=== PATIENT | female | born 1925 | race African-American/Black ===

== ENCOUNTER 2017-01-22 07:58 | Inpatient (IN) ==
[2017-01-22] MEDS ORDERED: ONDANSETRON 4 MG/2 ML VIAL IV STA ×2 (08:19→11:21)
[2017-01-22] MEDS ORDERED: SODIUM CHLORIDE 0.9% 1,000 ML IV STA (08:19)
--- NOTE | 2017-01-22 08:23 | Emergency Department Note ---
Yunier Martinez Rolonda, am scribing for, and in the presence of, Froy Quinetros MD 08: 21. Nlei Martinez James D, MD, personally performed the services described in this documentation, ascribed by Shanika Faye in my presence, and it is both accurate and complete 823 . 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 Mode of Arrival: Wheelchair Limitations: No Limitations Source: Patient, Old Records Reviewed, RN Notes Reviewed - History of Present Illness HPI Narrative: Pt is an 89 y/o female who presents to the ED with c/o constant abdominal pain with an onset of x1 week. Pt has a PMHx of DM, GERD and a PSHx of hysterectomy and bladder. Pt states that she is "so sick that she cant eat anything". She states that the pain radiates to side and back. Pt confirms that she has been itching and scratching along with having dark urine. She states that she has had a recent BM and no hematochezia. Pt is f/u by Dr. Hernandez. No other complaint/pain in ED. Onset (ago): week(s) Consistency: constant Severity: mild Severity scale (1-10): 3 Quality: other (radiating) Allergies/Adverse Reactions: Allergies Allergy/AdvReac Type Severity Reaction Status Date / Time Penicillins Allergy Mild HIVES Verified 01/22/17 08:04 Home Medications: Home Medications Medication Instructions Recorded Confirmed Type glipiZIDE [Glucotrol] 10 mg PO BID 01/01/15 01/22/17 History Esomeprazole Magnesium [Nexium] 40 mg PO DAILY 08/22/15 01/22/17 History Celecoxib [Celecoxib] 200 mg PO DAILY 01/22/17 01/22/17 History Cholecalciferol (Vitamin D3) 50,000 unit PO SA 01/22/17 01/22/17 History [Replesta] Cyclobenzaprine [Flexeril] 10 mg PO TID PRN 01/22/17 01/22/17 History Dexamethasone Tab [Decadron Tab] 4 mg PO DAILY 01/22/17 01/22/17 History Liraglutide [Victoza 2-Miguel] 1.2 mg SUBCUT QAM 01/22/17 01/22/17 History Losartan Potassium 50 mg PO DAILY 01/22/17 01/22/17 History Nitrofurantoin Monohyd/M-Cryst 100 mg PO QID 01/22/17 01/22/17 History [Nitrofurantoin [place]-Mcr 100 mg] Review of System - Review of System 12 point system: reviewed and no additional remarkable complaints except as stated - Review of System Constitutional: Absent: chills, fever Eyes: Absent: pain Head/Ears/Nose/Throat: Absent: earache Respiratory: Absent: cough, respiratory distress Cardiovascular: Absent: chest pain, dyspnea on exertion Gastrointestinal: Present: abdominal pain, nausea, vomiting. Absent: diarrhea Genitourinary female: Present: other (vaginal itching and scratching; dark urine ). Absent: dysuria Musculoskeletal: Present: back pain, other (side pain). Absent: arm pain, neck pain Skin: Absent: rash Neurological: Absent: headache Psychiatric: Absent: anxiety Endocrine: Absent: cold intolerance Hematological/Lymphatic: Absent: easy bleeding Allergic/Immunologic: Absent: facial swelling Medical,Surgical,& Family Hx - Medical History Cardio: History of: Hypertension Neurology: History of: Peripheral Neuropathy No history of: Seizures HEENT: History of: Eye Problem (glasses), Dental Problems (full set) Endocrine: History of: Diabetes Mellitus (IDDM), Dyslipidemia Rheumatology: History of;: Gout (feet), Rheumatoid Arthritis Respiratory: History of: Respiratory Problems (sinus problems) Genitourinary: History of: Bladder Problem (incontience) Gastrointestinal: History of: GERD, Hemorrhoids Musculoskeletal: History of: Back/Neck Problems Other: History of: Anesthesia Reactions (nausea), Cancer (bladder cancer) - Surgical History Thoracic Surgeries: Patient denies;: Organ Transplant, Lobectomy HEENT Surgeries: Surgical HX of: Eye Surgery (bilateral cataract) Reproductive Surgeries: Surgical HX of;: Genitourinary Surgery (bladder cancer removed), Hysterectomy Orthopedic Surgeries: Surgical HX of;: Total Hip Replacement (left), Total Knee Replacement (right) - Social History Smoking Status: Never smoker Frequency of Alcohol Use: None Type of Drug Use: None Exam Vital Signs: Vital Signs Temperature 97.1 F L 01/22/17 08:44 Pulse Rate 89 01/22/17 08:44 Respiratory Rate 17 01/22/17 08:44 Blood Pressure 121/61 01/22/17 08:44 O2 Sat by Pulse Oximetry 98 01/22/17 08:50 GENERAL: This is a well-nourished well-developed black female in no apparent distress. VITAL SIGNS: Reviewed HEENT: Head is atraumatic and normocephalic. Pupils are equal round react to light. Extraocular movements are intact. Arcus senilis is present bilaterally. Scleral icterus is present. Oropharynx is benign with moist mucous membranes. NECK: Neck is soft and supple without tenderness. There are no masses. There is no lymphadenopathy. LUNGS: Lungs are clear to auscultation. Chest rises symmetrically. There is no chest wall tenderness. CV: Heart is regular rate and rhythm without murmurs rubs or gallops. ABDOMEN: Abdomen is soft, tender to palpation in epigastrium and right upper quadrant without rebound. There are no abdominal abnormal masses palpated. There is no organomegaly. Bowel sounds are present and active. SKIN: Skin is warm and dry. No rash. EXTREMITIES: Patient has full range of motion without tenderness. There is no pedal edema. NEUROLOGIC: Awake alert and oriented 4. Cranial nerves II through XII are grossly intact. Motor is 5 over 5 in all extremities bilaterally. Course - Consultations Consultation #1: Discussed with Dr. De Luna. Patient will be admitted to his service. Time: 11:14 Consultation #2: Discussed with hospitalist. Patient will be admitted to their service. Time: 12:29 Results - Labs CBC & BMP: 01/22/17 09:00 01/22/17 10:15 Lab Results: I have reviewed the patients labs Labs: Laboratory Tests 01/22/17 10:15 Total Bilirubin 15.70 H* AST 122 H ALT 265 H Alkaline Phosphatase 265 H - Diagnostic Findings Procedure: Abdominal x-ray: image reviewed by me (No free air, nonspecific gas pattern.), Chest x-ray: image reviewed by me (No cardiomegaly, no pleural effusions, no infiltrates.), Ultrasound: report reviewed by me (Gallbladder ultrasound: Thickened gallbladder wall and cholelithiasis. Ultrasound consistent with cholecystitis.) Disposition Clinical Impression: Right upper quadrant abdominal pain, Jaundice, Cholelithiasis and cholecystitis with obstruction, Acute renal failure Case discussed with: patient Disposition: Still a Patient Condition: Guarded
--- NOTE | 2017-01-22 08:43 | XRay Report ---
XR abdomen 2V Indication: Generalized abdominal pain Comparison: None Technique: Frontal views of the abdomen in the supine and lateral decubitus position. Findings: Nonspecific bowel gas pattern. Much of the abdomen is essentially gasless. No free intraperitoneal air. Lung bases clear. Diffuse osteopenia. Total left hip prosthesis. Presumed pelvic phleboliths. It would be difficult to exclude distal ureteral calculus in the appropriate clinical setting. IMPRESSION: As above. PROCEDURE INTERPRETED AT [facility] DEPARTMENT OF RADIOLOGY Final Report Signed by: Dr Som Celeste
--- NOTE | 2017-01-22 08:45 | XRay Report ---
XR chest 1V portable Indication: Generalized abdominal pain Comparison: None Technique: Single frontal view of the chest. Findings: Heart size appears within normal limits. Chronic change of the lungs without focal consolidation, pleural effusion, or pneumothorax. Occasional small linear foci of scarring/atelectasis noted. Diffuse osteopenia. IMPRESSION: No acute cardiopulmonary process demonstrated. PROCEDURE INTERPRETED AT [facility] DEPARTMENT OF RADIOLOGY Final Report Signed by: Dr Som Celeste
--- NOTE | 2017-01-22 09:00 | EKG Report ---
Stationary ECG Study [facility] ER Test Date: 01/22/2017 8:58:13 AM Pat Name: PATO HERNANDES Department: Room: Gender: F Chief Nurse Executive: : [id number] Requested by: Froy Sanchez Order Number: [id number] Reading MD: JV BERKOWITZ Intervals [place] Rate: 80 P: 52 NE: 130 QRS: 53 QRSD: 82 T: -24 QT: 374 QTc: 410 Interpretive Statements SINUS RHYTHM NONSPECIFIC T-WAVE ABNORMALITY Electronically Signed On 01-22-17 13:35:13 CDT by JV BERKOWITZ [email or web address]
[2017-01-22] MEDS ORDERED: ONDANSETRON 4 MG/2 ML VIAL ONE ×2 (09:06→11:19)
[2017-01-22 09:07] LABS: Basophils % 0.2 % (0.0-0.8); Eosinophils % 0.1 % (0.00-10.9); Hemoglobin 12.7 GM/DL (12.0-16.0); Immature Granulocytes % 0.8 %; Immature Granulocytes Absolute 0.13 #; Lymphocytes # 1.3 10*3/uL (1.4-4.0); Lymphocytes % 8.2 % (21.3-54.2); Mean Corpuscular HGB Conc 36.3 GM/DL (32-36); Mean Corpuscular Hemoglobin 31 PG (27-34); Mean Corpuscular Volume 85.2 FL (87-102); Monocytes # 1.3 10*3/uL (0.11-0.8); Monocytes % 8.6 % (1.7-12.7); Neutrophils # 12.6 10*3/uL (1.4-7.4); Neutrophils % 82.1 % (38.7-73.9); Platelet Count 195 T/CUMM (130-400); Red Blood Count 4.11 MC/CUMM (3.8-5.5); Red Cell Distribution Width 16.8 % (9.3-17.3); White Blood Count 15.3 T/CUMM (4-12)
--- NOTE | 2017-01-22 09:18 | Ultrasound Report ---
Exam: US abdomen complete Date:01/22/2017 8:20 AM Comparison: No previous similar Indication: Upper abdominal pain. Jaundice Real-time ultrasound images are captured and archived. There is no aortic aneurysm. IVC is patent. There is hepatopedal flow in the portal vein. There is a 2.4 cm highly echogenic focus with posterior acoustic shadowing compatible with gallstone in the lumen of the gallbladder. There is a moderate amount of gallbladder sludge present. The gallbladder wall is thickened at 3.2 mm and contains some wall edema. The common bile duct is dilated at 12.6 mm. There is suggestion of potential debris within the common bile duct. There is mild intrahepatic biliary dilatation. No focal pancreatic mass is detected. The liver measures normal length 16.2 cm. There is no focal hepatic mass. The kidneys and spleen are without focal abnormality. Spleen measures 8.7 x 3.1 x 3.0 cm. The left kidney measures 8.6 cm length; the right kidney measures 10.9 cm. Impression: Cholelithiasis and gallbladder wall thickening Dilated common bile duct containing debris. Mild intrahepatic biliary dilatation. No definite pancreatic mass by this modality PROCEDURE INTERPRETED AT [facility] DEPARTMENT OF RADIOLOGY Final Report Signed by: Dr. Brittni Morales
[2017-01-22] MEDS ORDERED: metroNIDAZOLE INJ 500 MG in PREMIX 1 EACH IV STA (10:22)
[2017-01-22] MEDS ORDERED: LEVOFLOXACIN INJ 500 MG in PREMIX 1 EACH IV STA (10:22)
[2017-01-22] MEDS ORDERED: LEVOFLOXACIN INJ 100 ML IV ONE (10:35)
[2017-01-22 11:06] LABS: Albumin 2.5 G/DL (3.4-5.0); Calcium 9.3 MG/DL (8.5-10.1); Osmolality,Calculated 289.3 MOS/KG (273-304); Potassium 4.1 MMOL/L (3.5-5.1); Total Protein 6.1 G/DL (6.4-8.3); Troponin I Only 0.025 NG/ML (0.00-0.045)
[2017-01-22 11:07] LABS: Bilirubin,Total 15.7 MG/DL (0.2-1.0)
[2017-01-22] MEDS ORDERED: HYDROmorphone 2 MG/1 ML VIAL IV STA (11:13)
[2017-01-22] MEDS ORDERED: HYDROmorphone 2 MG/1 ML VIAL ONE (11:15)
[2017-01-22] MEDS ORDERED: diphenhydrAMINE 50 MG/1 ML VIAL ONE (12:32)
[2017-01-22] MEDS ORDERED: diphenhydrAMINE 50 MG/1 ML VIAL IV STA (12:34)
--- NOTE | 2017-01-22 12:35 | Gastrointestinal Consult Note ---
<KaylieghmeseretGhazal Daniel - Last Filed: 01/22/17 12:31> Assessment and Plan (1) Abdominal pain Status: Acute Assessment and plan: 01/22-2 week history of right upper quadrant abdominal pain radiating to back with associated nausea and vomiting. Reports of dark urine and itching as well 2 weeks. Findings noted on ultrasound as below. Also findings noted of elevated LFTs as below. Tumor markers pending at present time. Tentative ERCP tomorrow to further evaluate. Okay to start clear liquid diet. further plan an addendum to followed by Dr. Bernal. Current Visit: Yes History of Present Illness Chief complaint: Elevated LFTs, abdominal pain History of present illness: Ms. Cooper is a 89 year old female who was admitted to the hospital today following 2 week history of abdominal pain. Patient is a fair historian therefore information is obtained from patient interview as well as chart review. Patient lives alone and has very limited family. She states that approximately 2 weeks ago she began having some right upper quadrant abdominal pain. She states the pain seemed to be worse and at times by eating and was also associated with nausea without vomiting. She states at times the pain would radiate to her side and into her back. Patient also noted approximately 2 weeks ago that she has been having increased dark urine and has had some pruritus. She came to the emergency room today for further evaluation due to unable to keep anything down at this time. Patient denies any recent weight loss. Denies any melena or hematochezia. Denies any coffee-ground emesis or hematemesis. She states that she has been running fever over the past 2 weeks but did not check this. She denies any chills or night sweats. She does have a prior history of hypertension, diabetes, RA, and bladder cancer. She is seen regularly by Dr. Hernandez in [facility]. Upon admission, patient was found to have elevated LFTs with a bilirubin of 15.7, AST 122, ALT 265, and alkaline phosphatase 265. Lipase noted at 209. She also was noted to have some leukocytosis with WBCs at 15,000. She had abdominal ultrasound as well which showed dilated common bile duct at 12.6 mm with suggestion of debris within the duct as well as mild intrahepatic biliary dilation. Findings cholelithiasis with gallbladder wall thickening, no focal pancreatic or liver mass seen. She has been evaluated by Dr. Malone further testing pending at this time including tumor markers. Home Medications Medication Instructions Recorded Confirmed Type glipiZIDE [Glucotrol] 10 mg PO BID 01/01/15 01/22/17 History Esomeprazole Magnesium [Nexium] 40 mg PO DAILY 08/22/15 01/22/17 History Celecoxib [Celecoxib] 200 mg PO DAILY 01/22/17 01/22/17 History Cholecalciferol (Vitamin D3) 50,000 unit PO SA 01/22/17 01/22/17 History [Replesta] Cyclobenzaprine [Flexeril] 10 mg PO TID PRN 01/22/17 01/22/17 History Dexamethasone Tab [Decadron Tab] 4 mg PO DAILY 01/22/17 01/22/17 History Liraglutide [Victoza 2-Miguel] 1.2 mg SUBCUT QAM 01/22/17 01/22/17 History Losartan Potassium 50 mg PO DAILY 01/22/17 01/22/17 History Nitrofurantoin Monohyd/M-Cryst 100 mg PO QID 01/22/17 01/22/17 History [Nitrofurantoin [place]-Mcr 100 mg] Omeprazole [Prilosec] 20 mg PO DAILY 01/22/17 01/22/17 History Allergies Allergy/AdvReac Type Severity Reaction Status Date / Time Penicillins Allergy Mild HIVES Verified 01/22/17 08:04 Medical,Surgical,& Family Hx - Medical History Cardio: History of: Hypertension Neurology: History of: Peripheral Neuropathy No history of: Seizures HEENT: History of: Eye Problem (glasses), Dental Problems (full set) Endocrine: History of: Diabetes Mellitus (IDDM), Dyslipidemia Rheumatology: History of;: Gout (feet), Rheumatoid Arthritis Respiratory: History of: Respiratory Problems (sinus problems) Genitourinary: History of: Bladder Problem (incontience) Gastrointestinal: History of: GERD, Hemorrhoids Musculoskeletal: History of: Back/Neck Problems Other: History of: Anesthesia Reactions (nausea), Cancer (bladder cancer) - Surgical History Thoracic Surgeries: Patient denies;: Organ Transplant, Lobectomy HEENT Surgeries: Surgical HX of: Eye Surgery (bilateral cataract) Reproductive Surgeries: Surgical HX of;: Genitourinary Surgery (bladder cancer removed), Hysterectomy Orthopedic Surgeries: Surgical HX of;: Total Hip Replacement (left), Total Knee Replacement (right) - Social History Smoking Status: Never smoker Frequency of Alcohol Use: None Type of Drug Use: None 12 point system: reviewed and no additional remarkable complaints except as stated - Constitutional Constitutional: Present: anorexia, fever(s), lethargy - EENT Eyes: Present: as per HPI Ears: Present: as per HPI Nose, mouth and throat: Present: as per HPI - Cardiovascular Cardiovascular: Present: as per HPI - Respiratory Respiratory: Present: as per HPI - Gastrointestinal Gastrointestinal: Present: abdominal pain (Right upper quadrant radiating to back), nausea, vomiting - Genitourinary Genitourinary: Present: as per HPI - Musculoskeletal Musculoskeletal: Present: as per HPI - Neurological Neurological: Present: as per HPI - Psychiatric Psychiatric: Present: as per HPI - Endocrine Endocrine: Present: as per HPI - Hematologic/Lymphatic Hematologic/Lymphatic: Present: as per HPI Exam - Constitutional Vitals: Period Temp Pulse Resp BP Sys/Butler Pulse Ox Last 24 Hr 97.1 F-97.1 F 89-89 17-17 121-121/61-61 96-98 General appearance: normal weight, no acute distress - Head Head exam: Present: normal inspection, normocephalic - Eye Eye exam: Present: scleral icterus, other (Lids and conjunctivae unremarkable) - ENT ENT exam: Present: normal exam, normal oropharynx - Neck Neck exam: Present: normal inspection - Respiratory Respiratory exam: Present: clear to auscultation bilaterally. Absent: rales, rhonchi, wheezes - Cardiovascular Cardiovascular exam: Present: regular rate and rhythm. Absent: diastolic murmur , JVD, systolic murmur - GI/Abdominal GI/Abdominal exam: Present: normal bowel sounds, soft. Absent: ascites, distended, mass, organomegaly, tenderness - Extremities Exam Extremities exam: Present: normal inspection, full ROM - Back Exam Back exam: Present: normal inspection - Neurological Exam Neurological exam: Present: alert, oriented X3 - Psychiatric Psychiatric exam: Present: normal affect, normal mood - Skin Skin exam: Present: normal color, warm, dry Results - Labs CBC & BMP: 01/22/17 09:00 01/22/17 10:15 Lab Results: I have reviewed the past 24 hour labs - Diagnostic Findings Procedure: Ultrasound: report reviewed by me <Alexys Bernal - Last Filed: 01/22/17 18:47> History of Present Illness History of present illness: Ms. Cooper is a 89 year old female Exam - Constitutional Vitals: Period Temp Pulse Resp BP Sys/Butler Pulse Ox Last 24 Hr 97.1 F-98.5 F 78-89 17-20 116-127/54-63 93-98 Results - Labs CBC & BMP: 01/22/17 09:00 01/22/17 10:15
--- NOTE | 2017-01-22 12:46 | General Surgery Consult Note ---
Assessment and Plan - Time spent with patient Time spent with patient: Greater than 30 minutes (1) Hyperbilirubinemia Status: Acute Assessment and plan: 89-year-old female admitted by the hospitalist service with abdominal pain associated with nausea and vomiting. She is found to have severely elevated total bilirubin with mildly elevated LFTs with elevated white count of 15. She does have dilated common bile duct and mild intrahepatic ductal dilation. She also has some acute on chronic renal failure. She is stable hemodynamically. Will order hepatitis panel, CEA, CA-19-9, AFP, PT/INR and consult Dr. Bernal from GI. Dr. De Luna has seen and examined patient and will continue to follow. Current Visit: Yes (2) Abdominal pain Status: Acute Current Visit: Yes (3) Acute renal failure Status: Acute Current Visit: Yes (4) Jaundice Status: Acute Current Visit: Yes (5) DM II (diabetes mellitus, type II), controlled Status: Acute Current Visit: No History of Present Illness Chief complaint: Abdominal pain History of present illness: Ms. Cooper is a 89 year old female with history of diabetes, hypertension, RA, and bladder cancer admitted by the hospitalist service with a 2 week history of abdominal pain, intermittent nausea and vomiting, dark urine and itching. Patient states she was in her normal state of health until about 2 weeks ago when she started having some right upper quadrant abdominal pain. She lives alone without any difficulty. She says the pain would radiate to her side and into her back. She also noticed her urine became dark and she started has been some itching. She denies headache, weight loss, blood loss, constipation, lower extremity edema, chest pain or shortness of breath. Patient decided to come to the emergency room for further evaluation due to nausea and vomiting. Her white count is elevated at 15.3, T bili noted at 15.7, AST 122, ALT 265, ALP 265, normal lipase. Abdominal ultrasound is showing hepatopedal flow in the portal vein, cholelithiasis and gallbladder wall thickening, common bile duct dilation at 12.6 mm with debris, and mild intrahepatic biliary dilation. Patient's abdomen is mildly tender in the right upper quadrant. Dr. De Luna has been consulted for evaluation. Home Medications Medication Instructions Recorded Confirmed Type glipiZIDE [Glucotrol] 10 mg PO BID 01/01/15 01/22/17 History Esomeprazole Magnesium [Nexium] 40 mg PO DAILY 08/22/15 01/22/17 History Celecoxib [Celecoxib] 200 mg PO DAILY 01/22/17 01/22/17 History Cholecalciferol (Vitamin D3) 50,000 unit PO SA 01/22/17 01/22/17 History [Replesta] Cyclobenzaprine [Flexeril] 10 mg PO TID PRN 01/22/17 01/22/17 History Dexamethasone Tab [Decadron Tab] 4 mg PO DAILY 01/22/17 01/22/17 History Liraglutide [Victoza 2-Miguel] 1.2 mg SUBCUT QAM 01/22/17 01/22/17 History Losartan Potassium 50 mg PO DAILY 01/22/17 01/22/17 History Nitrofurantoin Monohyd/M-Cryst 100 mg PO QID 01/22/17 01/22/17 History [Nitrofurantoin [place]-Mcr 100 mg] Allergies Allergy/AdvReac Type Severity Reaction Status Date / Time Penicillins Allergy Mild HIVES Verified 01/22/17 08:04 Medical,Surgical,& Family Hx - Medical History Cardio: History of: Hypertension Neurology: History of: Peripheral Neuropathy No history of: Seizures HEENT: History of: Eye Problem (glasses), Dental Problems (full set) Endocrine: History of: Diabetes Mellitus (IDDM), Dyslipidemia Rheumatology: History of;: Gout (feet), Rheumatoid Arthritis Respiratory: History of: Respiratory Problems (sinus problems) Genitourinary: History of: Bladder Problem (incontience) Gastrointestinal: History of: GERD, Hemorrhoids Musculoskeletal: History of: Back/Neck Problems Other: History of: Anesthesia Reactions (nausea), Cancer (bladder cancer) - Surgical History Thoracic Surgeries: Patient denies;: Organ Transplant, Lobectomy HEENT Surgeries: Surgical HX of: Eye Surgery (bilateral cataract) Reproductive Surgeries: Surgical HX of;: Genitourinary Surgery (bladder cancer removed), Hysterectomy Orthopedic Surgeries: Surgical HX of;: Total Hip Replacement (left), Total Knee Replacement (right) - Social History Smoking Status: Never smoker Frequency of Alcohol Use: None Type of Drug Use: None Review of systems: A complete 10 system review of systems was obtained and pertinent positives and negatives per HPI Exam - Constitutional Vitals: Period Temp Pulse Resp BP Sys/Butler Pulse Ox Last 24 Hr 97.1 F-97.1 F 89-89 17-17 121-121/61-61 96-98 Exam: Constitutional System: Mild distress. No tremulousness. Head: Normocephalic, atraumatic. Ears, Nose and Throat System: No evidence of Otitis or Mastoiditis. No epistaxis or discharge Eyes System: Pupils equal, round, and reactive. Extraocular muscles intact. Neck: Supple, without adenopathy, No jugular venous distention. No thyromegaly, neck mass, or prior surgery apparent. Respiratory System: Chest clear to auscultation. Cardiovascular System: Heart with regular rate and rhythm. No murmur. GI System: Abdomen soft, Mildly tender right upper quadrant. Normo active bowel sounds present. Musculoskeletal System: limbs with no pedal edema. Full distal pulses. Neurological System: No discernable sensory deficit. No aphasia Psychiatric System: Conversation is rational Results - Labs CBC & BMP: 01/22/17 09:00 01/22/17 10:15 Lab Results: I have reviewed the past 24 hour labs - EKG EKG results: sinus rhythm - Diagnostic Findings Procedure: Chest x-ray: report reviewed by me (No acute cardiopulmonary process) , KUB x-ray: report reviewed by me (Nonspecific Bowel gas pattern, no free intraperitoneal air, diffuse osteopenia, total left hip prosthesis, possible distal ureteral calculus), Ultrasound: report reviewed by me (Abdominal ultrasound showing cholelithiasis and gallbladder wall thickening with dilated common bile duct containing debris and mild intrahepatic biliary dilation)
[2017-01-22] MEDS ORDERED: MORPHINE 2 MG/1 ML SYRINGE IV PRN (12:52)
[2017-01-22] MEDS ORDERED: LEVOFLOXACIN INJ 500 MG in PREMIX 1 EACH IV SCH (13:00)
[2017-01-22] MEDS ORDERED: LACTATED RINGERS 1,000 ML IV SCH (13:00)
[2017-01-22 13:10] LABS: Fibrinogen Quant Value 547 MG% (200-400); PT Patient Result 10.7 SECS; Partial Thromboplastin Time 23.7 SECS (0-40)
--- NOTE | 2017-01-22 13:13 | Hospitalist History & Physical ---
<Hector Kay - Last Filed: 01/22/17 13:12> History of Present Illness History of present illness: Ms. Cooper is a 89 year old female Home Medications Medication Instructions Recorded Confirmed Type glipiZIDE [Glucotrol] 10 mg PO BID 01/01/15 01/22/17 History Esomeprazole Magnesium [Nexium] 40 mg PO DAILY 08/22/15 01/22/17 History Celecoxib [Celecoxib] 200 mg PO DAILY 01/22/17 01/22/17 History Cholecalciferol (Vitamin D3) 50,000 unit PO SA 01/22/17 01/22/17 History [Replesta] Cyclobenzaprine [Flexeril] 10 mg PO TID PRN 01/22/17 01/22/17 History Dexamethasone Tab [Decadron Tab] 4 mg PO DAILY 01/22/17 01/22/17 History Liraglutide [Victoza 2-Miguel] 1.2 mg SUBCUT QAM 01/22/17 01/22/17 History Losartan Potassium 50 mg PO DAILY 01/22/17 01/22/17 History Nitrofurantoin Monohyd/M-Cryst 100 mg PO QID 01/22/17 01/22/17 History [Nitrofurantoin [place]-Mcr 100 mg] Allergies Allergy/AdvReac Type Severity Reaction Status Date / Time Penicillins Allergy Mild HIVES Verified 01/22/17 08:04 Medical,Surgical,& Family Hx - Medical History Cardio: History of: Hypertension Neurology: History of: Peripheral Neuropathy No history of: Seizures HEENT: History of: Eye Problem (glasses), Dental Problems (full set) Endocrine: History of: Diabetes Mellitus (IDDM), Dyslipidemia Rheumatology: History of;: Gout (feet), Rheumatoid Arthritis Respiratory: History of: Respiratory Problems (sinus problems) Genitourinary: History of: Bladder Problem (incontience) Gastrointestinal: History of: GERD, Hemorrhoids Musculoskeletal: History of: Back/Neck Problems Other: History of: Anesthesia Reactions (nausea), Cancer (bladder cancer) - Surgical History Thoracic Surgeries: Patient denies;: Organ Transplant, Lobectomy HEENT Surgeries: Surgical HX of: Eye Surgery (bilateral cataract) Reproductive Surgeries: Surgical HX of;: Genitourinary Surgery (bladder cancer removed), Hysterectomy Orthopedic Surgeries: Surgical HX of;: Total Hip Replacement (left), Total Knee Replacement (right) - Social History Smoking Status: Never smoker Frequency of Alcohol Use: None Type of Drug Use: None Exam - Constitutional Vitals: Period Temp Pulse Resp BP Sys/Butler Pulse Ox Last 24 Hr 97.1 F-97.1 F 89-89 -17 121-121/61-61 96-98 Results - Labs CBC & BMP: 01/22/17 09:00 01/22/17 10:15 <White,Jacinda R - Last Filed: 01/22/17 13:50> Assessment and Plan (1) Right upper quadrant abdominal pain Status: Acute Assessment and plan: abdomen us cholelithiasis and gallbladder wall thickening, Consult Surgery and GI Current Visit: Yes (2) Jaundice Status: Acute Assessment and plan: due elevated bilirubin, check direct. CBD dilated at 12.6, concerned about malignancy, ca 19-9 Current Visit: Yes (3) Elevated liver enzymes Status: Acute Assessment and plan: due to possible biliary obstruction, consider stone vs malignancy, GI consulted for ercp Current Visit: Yes (4) Diabetes Status: Acute Assessment and plan: hold victoza, hgb a1c, ISC Current Visit: Yes (5) Hypertension Status: Acute Assessment and plan: blood pressure not high, hold all meds Current Visit: Yes (6) Acute renal failure Status: Acute Assessment and plan: gentle hydration Current Visit: Yes (7) Severe sepsis Status: Acute Assessment and plan: elevated wbc, blood cx times 2, ua, cxr no pneumonia. levaquin and flagyl IV, lactic acid Current Visit: Yes History of Present Illness Chief complaint: abdominal pain History of present illness: Ms. Cooper is a 89 year old female reports abdominal pain with nausea and vomiting yesterday, had normal bowel movement this morning. Patient still has her gallbladder but feels like she cannot eat without nausea. Lives alone, no family in room, extremely poor historian, bad breath, concerned about her living along. Medical,Surgical,& Family Hx - Family History Family History: Reports;: Family Diabetes, Family Heart Disease - Social History Marital Status: Single Lives With:: Alone - Constitutional Constitutional: Present: fever(s), weakness - EENT Eyes: Absent: blurry vision, diplopia Ears: Absent: decreased hearing, ear discharge Nose, mouth and throat: Absent: headache(s), sore throat - Cardiovascular Cardiovascular: Present: dyspnea, dyspnea on exertion. Absent: chest pain at rest - Respiratory Respiratory: Present: dyspnea, dyspnea on exertion - Gastrointestinal Gastrointestinal: Present: abdominal pain, nausea, vomiting. Absent: constipation, diarrhea - Genitourinary Genitourinary: Absent: difficulty urinating, dysuria - Neurological Neurological: Present: dizziness. Absent: headache(s), syncope - Psychiatric Psychiatric: Absent: anxiety, depression - Endocrine Endocrine: Present: fatigue. Absent: cold intolerance - Hematologic/Lymphatic Hematologic/Lymphatic: Absent: easy bleeding, easy bruising Exam - Constitutional Vitals: Period Temp Pulse Resp BP Sys/Butler Pulse Ox Last 24 Hr 97.1 F-97.1 F 89-89 17-17 121-121/61-61 96-98 General appearance: mild distress, morbidly obese - Head Head exam: Present: normal inspection, normocephalic - Eye Eye exam: Present: EOMI, scleral icterus Pupils: Present: JEANNETTE, normal accommodation - ENT ENT exam: Present: normal exam, normal external ear exam - Neck Neck exam: Absent: lymphadenopathy, thyromegaly - Respiratory Respiratory exam: Present: clear to auscultation bilaterally. Absent: rhonchi, wheezes - Cardiovascular Cardiovascular exam: Present: tachycardia. Absent: systolic murmur - GI/Abdominal GI/Abdominal exam: Present: normal bowel sounds, tenderness, soft. Absent: firm , guarding - Extremities Exam Extremities exam: Present: normal inspection, normal capillary refill - Neurological Exam Neurological exam: Present: altered, other (could not perform neuro exam ) - Psychiatric Psychiatric exam: Present: normal affect, normal mood - Skin Skin exam: Present: normal color, warm Results - Labs CBC & BMP: 01/22/17 09:00 01/22/17 10:15 Lab Results: I have reviewed the past 24 hour labs Labs: Fibrinogen 547, total Bilirubin 15.7, ast 122, alt 265 - Diagnostic Findings Procedure: Chest x-ray: report reviewed by me (nothing acute ), KUB x-ray: report reviewed by me (diffuse osteopenia ), Ultrasound: report reviewed by me ( cholelithiasis and gallbladder wal thickening)
[2017-01-22] MEDS ORDERED: DEXTROSE 50% 25 GM/50 ML SYRINGE IV PRN (13:47)
[2017-01-22] MEDS ORDERED: GLUCAGON 1 MG VIAL IM PRN (13:47)
[2017-01-22 13:53] LABS: Cancer Antigen 19-9 133.5 U/ML (0-37); Hepatitis A Ab IgM Quant 0.26 Index; Hepatitis A Ab IgM Result Negative (Negative); Hepatitis B Core IgM Quant < 0.05 Index; Hepatitis B Core IgM Result Negative (Negative); Hepatitis B Surface Ag Result Negative (Negative); Hepatitis C Virus Ab Quant 0.12 Index; Hepatitis C Virus Ab Result Negative (Negative)
[2017-01-22] MEDS ORDERED: NOREPINEPHRINE 8 MG in SODIUM CHLORIDE 0.9% 242 ML IV SCH (14:00)
[2017-01-22 14:54] LABS: INR 1.1; PT Patient Result 11.4 SECS; Partial Thromboplastin Time 29.1 SECS (0-40)
[2017-01-22] MEDS: SODIUM CHLORIDE 0.9% 1,000 ML IV SCH (16:37)
[2017-01-22] MEDS: metroNIDAZOLE INJ 500 MG in PREMIX 1 EACH IV SCH ×2 (17:41→23:00)
[2017-01-22] MEDS: INSULIN LISPRO 100 UNIT/ML SUBCUT SCH (18:17)
[2017-01-23] MEDS: INSULIN LISPRO 100 UNIT/ML SUBCUT SCH ×4 (00:26→18:50)
[2017-01-23] MEDS: metroNIDAZOLE INJ 500 MG in PREMIX 1 EACH IV SCH ×3 (05:48→17:15)
[2017-01-23] MEDS: SODIUM CHLORIDE 0.9% 1,000 ML IV SCH ×2 (05:55→18:34)
[2017-01-23] MEDS ORDERED: LACTATED RINGERS 1,000 ML IV ONE (08:18)
[2017-01-23 08:40] LABS: Basophils % 0.1 % (0.0-0.8); Eosinophils % 0.1 % (0.00-10.9); Hematocrit 31.8 VOL% (35.7-47.0); Hemoglobin 11.2 GM/DL (12.0-16.0); Immature Granulocytes % 0.9 %; Immature Granulocytes Absolute 0.12 #; Lymphocytes # 1.4 10*3/uL (1.4-4.0); Lymphocytes % 10.4 % (21.3-54.2); Mean Corpuscular HGB Conc 35.2 GM/DL (32-36); Mean Corpuscular Hemoglobin 30 PG (27-34); Mean Corpuscular Volume 85.9 FL (87-102); Mean Platelet Volume 14.1 FL (9.6-12.0); Monocytes # 1.2 10*3/uL (0.11-0.8); Monocytes % 8.6 % (1.7-12.7); Neutrophils % 79.9 % (38.7-73.9); Platelet Count 112 T/CUMM (130-400); Red Cell Distribution Width 17.1 % (9.3-17.3); White Blood Count 13.8 T/CUMM (4-12)
[2017-01-23 08:48] LABS: INR 1.1; PT Patient Result 11.6 SECS
[2017-01-23] MEDS ORDERED: fentaNYL 100 MCG/2 ML VIAL ONE (09:00)
[2017-01-23 09:03] LABS: Hypochromasia 1+; Lymphocytes 13 % (20-55); Segmented Neutrophils 82 % (50-85); Total Cells Counted 100
[2017-01-23 09:04] LABS: Burr Cells Slight
[2017-01-23 09:05] LABS: Platelet Estimate Adequate
[2017-01-23] MEDS ORDERED: ETOMIDATE 20 MG/10 ML VIAL IV ONE (09:13)
[2017-01-23] MEDS ORDERED: LIDOCAINE 100 MG/5 ML SYRINGE ONE (09:13)
[2017-01-23] MEDS ORDERED: PROPOFOL 200 MG/20 ML VIAL IV ONE (09:13)
[2017-01-23 09:15] LABS: Calcium 8.6 MG/DL (8.5-10.1); Osmolality,Calculated 289.4 MOS/KG (273-304); Potassium 4.3 MMOL/L (3.5-5.1); Total Protein 5.2 G/DL (6.4-8.3)
[2017-01-23] MEDS ORDERED: GLUCAGON 1 MG VIAL ONE (09:16)
[2017-01-23 09:17] LABS: Bilirubin,Total 14.5 MG/DL (0.2-1.0)
--- NOTE | 2017-01-23 09:52 | History and Physical Update ---
History and Physical Update - Physical Exam Mental Status: alert and oriented Heart: regular rate and rhythm Lung: clear to auscultation Abdomen: within normal limits Vitals: within normal limits
--- NOTE | 2017-01-23 09:57 | Operative Note ---
Date of procedure: 01/23/17 Pre-op diagnosis: Obstructive jaundice Procedure: Endoscopic retrograde cholangiopancreatography with sphincterotomy and stent placement. 89-year-old female admitted with obstructive jaundice now for ERCP to further evaluate please see the consultative record for further details. Informed consent was obtained from patient and family. She was sedated with MAC anesthesia per anesthesia protocol. Patient was placed in the prone position the Olympus duodenal scope inserted into the oral cavity events under blind passage into the proximal esophagus. Esophagus stomach duodenum pylorus ampulla appeared normal. The sphincterotome was utilized pancreatic duct revealed normal pancreatic duct at the head body tail the pancreas. The catheter was repositioned common bile duct common hepatic duct was visualized with a significant stricture in the mid common hepatic duct suspicious for cholangiocarcinoma. Proximal ductal dilatation was observed with a large amount of black bowel passing. Cystic duct does appear to be patent. It was elected to proceed with sphincterotomy and 8 mm sphincterotomy was performed without difficulty. Subsequently a new 8.5 Kazakh by 12 cm biliary stent was passed through the area of narrowing. The stent was left in good position. Scope was removed. Patient was discharged recovery in good condition. Postop diagnosis: 1. 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 Successful stent placement continue to observe for complications will need stent revision in 10-12 weeks. Await tumor markers consider CT or MRI to see if there is mass for tissue diagnosis if chemo is to be considered. Anesthesia: MAC Surgeon / Physician: Alexys Bernal Estimated blood loss: none Specimens: none sent Condition: stable Disposition: post procedure unit Results - Labs CBC & BMP: 01/23/17 08:14 01/23/17 08:14 Discharge Plan - Discharge Medications No Action glipiZIDE [Glucotrol] 10 mg PO BID Esomeprazole Magnesium [Nexium] 40 mg PO DAILY Losartan Potassium 50 mg PO DAILY Liraglutide [Victoza 2-Miguel] 1.2 mg SUBCUT QAM Nitrofurantoin Monohyd/M-Cryst [Nitrofurantoin Archer-Mcr 100 mg] 100 mg PO QID Cyclobenzaprine [Flexeril] 10 mg PO TID PRN PRN Reason: MUSCLE SPASMS Cholecalciferol (Vitamin D3) [Replesta] 50,000 unit PO SA Celecoxib [Celecoxib] 200 mg PO DAILY Dexamethasone Tab [Decadron Tab] 4 mg PO DAILY Omeprazole [Prilosec] 20 mg PO DAILY - Follow Up or Referral - Forms/Instructions
--- NOTE | 2017-01-23 10:00 | Anesthesia Post-Op ---
Anesthesia Post OP - Post Ansesthetic Evaluation Patient seen in post op: Yes Resp: within normal limits CV: within normal limits Mental: within normal limits Temp: within normal limits [id number]: within normal limits Nausea and Vomiting: within normal limits Pain: within normal limits
--- NOTE | 2017-01-23 10:24 | Fluoroscopy Report ---
FL ERCP w sphincterotomy Indication: Elevated LFTs, dilated common bile duct Comparison: None Technique: 10 intraoperative fluoroscopic views of the biliary tree. Fluoroscopy time 2 minutes 56 seconds. Findings: Images submitted during ERCP and stent placement within the common duct. Stricture is demonstrated within the proximal common duct suspicious for neoplasm. Recommend CT abdomen with and without the use of intravenous contrast for further evaluation. IMPRESSION: As above. PROCEDURE INTERPRETED AT [facility] DEPARTMENT OF RADIOLOGY Final Report Signed by: Dr Som Celeste
[2017-01-23] MEDS: LEVOFLOXACIN INJ 250 MG in PREMIX 1 EACH IV SCH (11:58)
[2017-01-23] MEDS: ONDANSETRON 4 MG/2 ML VIAL IV PRN (12:00)
--- NOTE | 2017-01-23 14:16 | ECHO Report ---
Ginger Cooper Exam Date: 01/23/2017 08:29 Referring Physician: Technologist: Belkis Blanco RDCS Age: 89 Ht (in): 66 Wt (lb): 160 Gender: F Exam Location: [facility] Echo Indications: GERD, Essential (primary) hypertension, Peripheral neuropathy, IDDM, Nausea, Bladder CA BP: 121 / 61 HR: 82 Rhythm: Sinus Technical Quality: Good IMPRESSIONS Normal left ventricular cavity size. Mild left ventricular hypertrophy. Left ventricular ejection fraction is estimated at 55 %. The right ventricle is normal in size and function. The right atrium is mildly enlarged. Moderately increased left atrial size. Mildly thickened mitral valve. Mild mitral annular calcification. Trace mitral valve regurgitation. Mild aortic valve calcification. No aortic valve stenosis. [id number] aortic valve regurgitation. Morphologically normal tricuspid valve. Moderate tricuspid valve regurgitation. Tricuspid regurgitation velocities suggest a PAP of 70 mmHg. Morphologically normal pulmonic valve without significant stenosis. There is no pulmonic regurgitation. Normal pericardium without effusion. Normal ascending aorta dimension. MEASUREMENTS (Male / Female) Normal Values 2D ECHO LV Diastolic Diameter PLAX 3.2 cm 4.2 - 5.9 / 3.9 - 5.3 cm LV Systolic Diameter PLAX 2.2 cm LV Fractional Shortening PLAX 30.9 % IVS Diastolic Thickness 1.2 cm 0.6 - 1.0 / 0.6 - 0.9 cm LVPW Diastolic Thickness 1.2 cm 0.6 - 1.0 / 0.6 - 0.9 cm RV Internal Dim ED PLAX 2.3 cm Aortic Root Diameter 3.3 cm LA Systolic Diameter LX 4.1 cm 3.0 - 4.0 / 2.7 - 3.8 cm DOPPLER TR Peak Velocity 388.0 cm/s TR Peak Gradient 60.2 mmHg FINDINGS Left Ventricle Normal left ventricular cavity size. Mild left ventricular hypertrophy. Left ventricular ejection fraction is estimated at 55 %. Right Ventricle The right ventricle is normal in size and function. Right Atrium The right atrium is mildly enlarged. Left Atrium Moderately increased left atrial size. Mitral Valve Mildly thickened mitral valve. Mild mitral annular calcification. Trace mitral valve regurgitation. Aortic Valve Mild aortic valve calcification. No aortic valve stenosis. Mild-to- moderate aortic valve regurgitation. Tricuspid Valve Morphologically normal tricuspid valve. Moderate tricuspid valve regurgitation. Tricuspid regurgitation velocities suggest a PAP of 70 mmHg. Pulmonic Valve Morphologically normal pulmonic valve without significant stenosis. There is no pulmonic regurgitation. Pericardium Normal pericardium without effusion. Aorta Normal ascending aorta dimension. Harlan Drummond MD (Electronically Signed) Final Date: 23 January 2017 14:15
--- NOTE | 2017-01-23 16:09 | General Surgery Progress Note ---
Assessment and Plan - Time spent with patient Time spent with patient: Less than 30 minutes (1) Hyperbilirubinemia Status: Acute Assessment and plan: 89-year-old female admitted by the hospitalist service with abdominal pain associated with nausea and vomiting. She is found to have severely elevated total bilirubin with mildly elevated LFTs with elevated white count of 15. She does have dilated common bile duct and mild intrahepatic ductal dilation. She also has some acute on chronic renal failure. She is stable hemodynamically. Will order hepatitis panel, CEA, CA-19-9, AFP, PT/INR and consult Dr. Bernal from GI. Dr. De Luna has seen and examined patient and will continue to follow. 01/23/2017 patient feels a little bit better this afternoon. She still is having mild pain but she was able to tolerate a little bit of a diet. ERCP with sphincterotomy and stent placement done by Dr. Bernal today. He found a suspected cholangiocarcinoma. No gallstones or acute cholecystitis was found. There is no indication for cholecystectomy at this time. Dr. De Luna will sign off. Please call if needed. Current Visit: Yes (2) Abdominal pain Status: Acute Current Visit: Yes (3) Acute renal failure Status: Acute Current Visit: Yes (4) Jaundice Status: Acute Current Visit: Yes (5) DM II (diabetes mellitus, type II), controlled Status: Acute Current Visit: No Subjective Narrative: Patient still having mild pain status post ERCP. She was able to tolerate a little bit of her tray this afternoon. Exam - Constitutional Vitals: Period Temp Pulse Resp BP Sys/Butler Pulse Ox Last 24 Hr 96.9 F-99.2 F 77-89 14-21 98-146/47-65 92-100 Exam: 89-year-old -[place] female, no acute distress, alert and oriented Chest clear CV regular rate and rhythm Abdomen obese, mildly tender in epigastric and right upper quadrant Extremities mild edema Results - Labs CBC & BMP: 01/23/17 08:14 01/23/17 08:14 Lab Results: I have reviewed the past 24 hour labs - Diagnostic Findings Procedure: X-ray: report reviewed by me (ERCP x-ray status post stent placement within the common duct. Stricture demonstrated within the proximal common duct suspicious for neoplasm.)
[2017-01-23] MEDS: diphenhydrAMINE CAP 25 MG CAPSULE PO PRN (17:15)
--- NOTE | 2017-01-23 20:52 | Hospitalist Progress Note ---
Hospitalist: Subjective Interval history: Patient is feeling weak overall and has itching. Otherwise she is comfortable. Exam - Constitutional Vitals: Period Temp Pulse Resp BP Sys/Butler Pulse Ox Last 24 Hr 96.9 F-98.8 F 77-89 14-21 98-146/47-65 92-100 Exam: General: No Acute Distress HEENT: Jaundice Neck: Supple, No JVD Chest: Clear to auscultation B/L CV: S1 + S2 audible without murmur, gallop or rub Abd: soft, NT, Non-distended, BS + Ext: No edema Skin: No purpura, bruising or rash Rheumatologic: No Joint deformities Neurologic: Strength 5/5 all extremities, no gross sensory deficits Results - Labs CBC & BMP: 01/23/17 08:14 01/23/17 08:14 - Impressions (1) Obstructive jaundice Status: Acute Assessment and plan: Patient is status post ERCP with sphincterotomy and stent placement 01/23 with suspected cholangiocarcinoma Current Visit: Yes (2) Abdominal pain Status: Acute Current Visit: Yes (3) Acute renal failure Status: Acute Current Visit: Yes (4) Jaundice Status: Acute Current Visit: Yes (5) DM II (diabetes mellitus, type II), controlled Status: Acute Current Visit: No
[2017-01-24] MEDS: metroNIDAZOLE INJ 500 MG in PREMIX 1 EACH IV SCH ×5 (00:50→23:12)
[2017-01-24] MEDS ORDERED: ALUMINUM/MAGNES/SIMETH MAX STR 30 ML UDCUP PO PRN (01:48)
[2017-01-24] MEDS ORDERED: PANTOPRAZOLE 40 MG VIAL IV ONE (01:49)
[2017-01-24] MEDS: SODIUM CHLORIDE 0.9% 1,000 ML IV SCH ×2 (04:13→20:49)
[2017-01-24 06:40] LABS: Albumin 1.8 G/DL (3.4-5.0); Calcium 8.4 MG/DL (8.5-10.1); Osmolality,Calculated 289.4 MOS/KG (273-304); Potassium 4.3 MMOL/L (3.5-5.1); Total Protein 4.7 G/DL (6.4-8.3)
[2017-01-24 06:46] LABS: Bilirubin,Total 13.5 MG/DL (0.2-1.0)
[2017-01-24] MEDS: INSULIN LISPRO 100 UNIT/ML SUBCUT SCH ×4 (06:53→18:37)
--- NOTE | 2017-01-24 09:18 | Gastrointestinal Progress Note ---
<KayleighmeseretGhazal Daniel - Last Filed: 01/24/17 09:16> Assessment and Plan (1) Abdominal pain Status: Acute Assessment and plan: 01/24-no complaints of abdominal pain. Tolerating diet. ERCP findings noted as below. Bilirubin remains elevated at 13 with minimal change in transaminases. CA-19-9 elevated. Further plan an addendum to followed by Dr. Bernal 01/22-2 week history of right upper quadrant abdominal pain radiating to back with associated nausea and vomiting. Reports of dark urine and itching as well 2 weeks. Findings noted on ultrasound as below. Also findings noted of elevated LFTs as below. Tumor markers pending at present time. Tentative ERCP tomorrow to further evaluate. Okay to start clear liquid diet. further plan an addendum to followed by Dr. Bernal. Current Visit: Yes Gastroenterology - PN: Subj Interval history: CC: Jaundice, abdominal pain Patient is seen, awake and alert sitting up in bed. States she had an uneventful night. Findings of ERCP noted on yesterday with possible cholangiocarcinoma with stent placement. Surgery has evaluated post ERCP and has signed off at this time. Abdomen soft, nontender. Notation of elevated CA- 19-9 level at 133.5. Bilirubin remains elevated at 13 with minimal change in transaminases at this time. Patient denies any abdominal pain, nausea or vomiting. Tolerating her diet at present time. ROS: Denies shortness of breath or chest pain Exam (Progress Note) - Constitutional Vitals: Period Temp Pulse Resp BP Sys/Butler Pulse Ox Last 24 Hr 96.9 F-98.6 F 77-98 14-20 112-146/48-65 92-100 General appearance: normal weight, no acute distress - Head Head exam: Present: normal inspection, normocephalic - Eye Eye exam: Present: scleral icterus, other - ENT ENT exam: Present: normal exam, normal oropharynx - Neck Neck exam: Present: normal inspection - Respiratory Respiratory exam: Present: clear to auscultation bilaterally. Absent: rales, rhonchi, wheezes - Cardiovascular Cardiovascular exam: Present: regular rate and rhythm. Absent: diastolic murmur , JVD, systolic murmur - GI/Abdominal GI/Abdominal exam: Present: normal bowel sounds, soft. Absent: ascites, distended, mass, organomegaly, tenderness - Extremities Exam Extremities exam: Present: normal inspection, full ROM - Back Exam Back exam: Present: normal inspection - Neurological Exam Neurological exam: Present: alert, oriented X3 - Psychiatric Psychiatric exam: Present: normal affect, normal mood - Skin Skin exam: Present: normal color, warm, dry Results - Labs CBC & BMP: 01/23/17 08:14 01/24/17 04:34 Lab Results: I have reviewed the past 24 hour labs <Alexys Bernal - Last Filed: 01/24/17 16:22> Exam (Progress Note) - Constitutional Vitals: Period Temp Pulse Resp BP Sys/Butler Pulse Ox Last 24 Hr 98.0 F-99.9 F 78-98 16-20 109-135/48-67 92-100 Results - Labs CBC & BMP: 01/23/17 08:14 01/24/17 04:34
[2017-01-24] MEDS: PANTOPRAZOLE 40 MG VIAL IV SCH (09:49)
[2017-01-24] MEDS: LEVOFLOXACIN INJ 250 MG in PREMIX 1 EACH IV SCH (09:50)
[2017-01-24] MEDS: diphenhydrAMINE CAP 25 MG CAPSULE PO PRN (11:37)
--- NOTE | 2017-01-24 18:38 | Hospitalist Progress Note ---
Hospitalist: Subjective Interval history: She has less itching today Exam - Constitutional Vitals: Period Temp Pulse Resp BP Sys/Butler Pulse Ox Last 24 Hr 98.0 F-99.9 F 78-98 16-20 109-135/48-67 92-100 Exam: General: No Acute Distress HEENT: Jaundice Neck: Supple, No JVD Chest: Clear to auscultation B/L CV: S1 + S2 audible without murmur, gallop or rub Abd: soft, NT, Non-distended, BS + Ext: No edema Skin: No purpura, bruising or rash Rheumatologic: No Joint deformities Neurologic: Strength 5/5 all extremities, no gross sensory deficits Results - Labs CBC & BMP: 01/23/17 08:14 01/24/17 04:34 - Impressions (1) Obstructive jaundice Status: Acute Assessment and plan: Patient is status post ERCP with sphincterotomy and stent placement 01/23 with suspected cholangiocarcinoma Current Visit: Yes (2) Abdominal pain Status: Acute Current Visit: Yes (3) Acute renal failure Status: Acute Current Visit: Yes (4) Jaundice Status: Acute Current Visit: Yes (5) DM II (diabetes mellitus, type II), controlled Status: Acute Current Visit: No
[2017-01-25] MEDS: INSULIN LISPRO 100 UNIT/ML SUBCUT SCH ×4 (01:10→18:40)
[2017-01-25] MEDS: metroNIDAZOLE INJ 500 MG in PREMIX 1 EACH IV SCH ×4 (04:52→23:30)
[2017-01-25 05:54] LABS: Albumin 1.8 G/DL (3.4-5.0); Calcium 8.1 MG/DL (8.5-10.1); Osmolality,Calculated 288.5 MOS/KG (273-304); Potassium 4.3 MMOL/L (3.5-5.1); Total Protein 4.5 G/DL (6.4-8.3)
[2017-01-25 06:00] LABS: Bilirubin,Total 12.7 MG/DL (0.2-1.0)
[2017-01-25] MEDS: PANTOPRAZOLE 40 MG VIAL IV SCH (08:34)
[2017-01-25] MEDS: LEVOFLOXACIN INJ 250 MG in PREMIX 1 EACH IV SCH (09:15)
[2017-01-25] MEDS: SODIUM CHLORIDE 0.9% 1,000 ML IV SCH ×2 (12:59→22:40)
[2017-01-25] MEDS: POLYETHYLENE GLYCOL POWDER 17 GM PACK PO SCH (14:12)
--- NOTE | 2017-01-25 14:35 | Hospitalist Progress Note ---
Hospitalist: Subjective Interval history: Patient reports some right-sided abdominal pain today Exam - Constitutional Vitals: Period Temp Pulse Resp BP Sys/Butler Pulse Ox Last 24 Hr 97.7 F-99.6 F 77-91 16-19 119-141/61-73 94-100 Exam: General: No Acute Distress HEENT: Jaundice Neck: Supple, No JVD Chest: Clear to auscultation B/L CV: S1 + S2 audible without murmur, gallop or rub Abd: soft, NT, Non-distended, BS + Ext: No edema Skin: No purpura, bruising or rash Rheumatologic: No Joint deformities Neurologic: Strength 5/5 all extremities, no gross sensory deficits Results - Labs CBC & BMP: 01/23/17 08:14 01/25/17 05:01 - Impressions Impressions (1) Obstructive jaundice Status: Acute Assessment and plan: Patient is status post ERCP with sphincterotomy and stent placement 01/23 with suspected cholangiocarcinoma. Oncology has been consulted. I discussed the plan of care with the daughter at bedside 01/25 Current Visit: Yes (2) Abdominal pain Status: Acute Current Visit: Yes Duragesic patch added January 25 as she continues to have intermittent abdominal pain (3) Acute renal failure Status: Acute Current Visit: Yes BUN and creatinine are trending up slowly, nephrology consulted (4) Constipation Status: Acute Current Visit: Yes Continue Colace and Miralax (5) DM II (diabetes mellitus, type II), controlled Status: Acute Current Visit: No
[2017-01-25] MEDS: DOCUSATE SODIUM 100 MG CAPSULE PO SCH (21:08)
[2017-01-25 21:28] LABS: Apearance,Urine Slightly Hazy (Clear); Bacteria,Urine Many /HPF (Few); Bilirubin,Urine Moderate mg/dL (Negative); Blood, Urine Small mg/dL (Negative); Glucose,Urine (UA) Negative (Negative); Ketones,Urine 5 mg/dL (Negative); Nitrite,Urine Negative (Negative); Protein,Urine 30 MG/DL; RBC,Urine 3 /HPF (0-4); Squamous Epithelial Cell,Urine Occasional /HPF (0-10); Urine Color Amber (Yellow); Urine Specific Gravity 1.008 (1.001-1.035); WBC,Urine 14 /HPF (0-6)
[2017-01-26] MEDS: INSULIN LISPRO 100 UNIT/ML SUBCUT SCH ×4 (00:55→18:17)
[2017-01-26] MEDS: metroNIDAZOLE INJ 500 MG in PREMIX 1 EACH IV SCH ×3 (05:47→17:08)
[2017-01-26 05:51] LABS: Albumin 1.8 G/DL (3.4-5.0); Bilirubin,Total 11.6 MG/DL (0.2-1.0); Calcium 8.1 MG/DL (8.5-10.1); Osmolality,Calculated 289.5 MOS/KG (273-304); Potassium 4.2 MMOL/L (3.5-5.1); Total Protein 4.6 G/DL (6.4-8.3)
[2017-01-26] MEDS: DOCUSATE SODIUM 100 MG CAPSULE PO SCH ×2 (10:36→20:50)
[2017-01-26] MEDS: POLYETHYLENE GLYCOL POWDER 17 GM PACK PO SCH (10:36)
[2017-01-26] MEDS: LEVOFLOXACIN INJ 250 MG in PREMIX 1 EACH IV SCH (10:37)
[2017-01-26] MEDS: PANTOPRAZOLE 40 MG VIAL IV SCH (10:37)
[2017-01-26] MEDS: SODIUM CHLORIDE 0.9% 1,000 ML IV SCH (12:16)
--- NOTE | 2017-01-26 13:25 | Nephrology Consult Note ---
History of Present Illness Chief complaint: Abd pain, common bile duct mass History of present illness: Ms. 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 Creatinine on admission 2.1, 3.4 yesterday, 3.1 today. Hyperchloremic metabolic acidosis most likely from NS IVFs. eGFR 17cc/min, CKD stage 4 on admission and now. UA with GNRs on once daily levofloxacin and flagyl. ID and sensitivity pending. Home Medications Medication Instructions Recorded Confirmed Type glipiZIDE [Glucotrol] 10 mg PO BID 01/01/15 01/22/17 History Esomeprazole Magnesium [Nexium] 40 mg PO DAILY 08/22/15 01/22/17 History Celecoxib [Celecoxib] 200 mg PO DAILY 01/22/17 01/22/17 History Cholecalciferol (Vitamin D3) 50,000 unit PO SA 01/22/17 01/22/17 History [Replesta] Cyclobenzaprine [Flexeril] 10 mg PO TID PRN 01/22/17 01/22/17 History Dexamethasone Tab [Decadron Tab] 4 mg PO DAILY 01/22/17 01/22/17 History Liraglutide [Victoza 2-Miguel] 1.2 mg SUBCUT QAM 01/22/17 01/22/17 History Losartan Potassium 50 mg PO DAILY 01/22/17 01/22/17 History Nitrofurantoin Monohyd/M-Cryst 100 mg PO QID 01/22/17 01/22/17 History [Nitrofurantoin [place]-Mcr 100 mg] Omeprazole [Prilosec] 20 mg PO DAILY 01/22/17 01/22/17 History Allergies Allergy/AdvReac Type Severity Reaction Status Date / Time Penicillins Allergy Mild HIVES Verified 01/22/17 08:04 Medical,Surgical,& Family Hx - Medical History Cardio: History of: Hypertension Neurology: History of: Peripheral Neuropathy No history of: Seizures HEENT: History of: Eye Problem (glasses), Dental Problems (full set) Endocrine: History of: Diabetes Mellitus (IDDM), Dyslipidemia Rheumatology: History of;: Gout (feet), Rheumatoid Arthritis Respiratory: History of: Respiratory Problems (sinus problems) Genitourinary: History of: Bladder Problem (incontience) Gastrointestinal: History of: GERD, Hemorrhoids Musculoskeletal: History of: Back/Neck Problems Other: History of: Anesthesia Reactions (nausea), Cancer (bladder cancer) - Surgical History Thoracic Surgeries: Patient denies;: Organ Transplant, Lobectomy HEENT Surgeries: Surgical HX of: Eye Surgery (bilateral cataract) Reproductive Surgeries: Surgical HX of;: Genitourinary Surgery (bladder cancer removed), Hysterectomy Orthopedic Surgeries: Surgical HX of;: Total Hip Replacement (left), Total Knee Replacement (right) - Family History Family History: Reports;: Family Cancer (son-brain tumor), Family Diabetes ( sister X2), Family Heart Disease - Social History Smoking Status: Never smoker Frequency of Alcohol Use: None Type of Drug Use: None Exam - Vital Signs Vital signs: Period Temp Pulse Resp BP Sys/Butler Pulse Ox Last 24 Hr 97.7 F-98.7 F 74-85 16-18 118-163/53-68 95-100 - General Appearance General appearance: well-developed, obese EENT: ATNC, PERRL, mucous membranes dry, hearing intact, vision intact Neck: no JVD, no thyromegaly Respiratory: no kyphosis, clear Cardiology: no murmurs, no rub Gastrointestinal: normoactive bowel sounds, no tenderness Integumentary: no rash, warm and dry Neurologic: no focal deficit, no asterixis Musculoskeletal: no deformities, no erythema Psychiatric: mood/affect appropriate, cooperative Results - Labs CBC & BMP: 01/23/17 08:14 01/26/17 05:00 Assessment and Plan (1) CKD (chronic kidney disease) stage 3, GFR 30-59 ml/min Status: Acute Current Visit: Yes (2) HUSSEIN (acute kidney injury) Problem details: Could be related to direct nephrotoxic effects of hyperbilirubinemia, but usually requires levels >20. Status: Acute Assessment and plan: Check urinary indices to asses for intrinsic vs prerenal process. Current Visit: Yes (3) Hyperbilirubinemia Status: Acute Current Visit: Yes (4) DM II (diabetes mellitus, type II), controlled Status: Acute Current Visit: No (5) UTI (urinary tract infection) Status: Acute Current Visit: No
[2017-01-26] MEDS: SODIUM ACETATE 100 MEQ in DEXTROSE 5% 1,000 ML IV SCH (15:21)
--- NOTE | 2017-01-26 17:06 | Hospitalist Progress Note ---
Hospitalist: Subjective Interval history: 89 year old female with elevated bilirubin and found to have obstructed common bile duct, s/p ERCP with stent, elevated CA 19-9 suspicious for cholangiocarcinoma. Family wants to take her to [facility] for a second opinion. Oncology has been consulted here and we will await there recommendations. Exam - Constitutional Vitals: Period Temp Pulse Resp BP Sys/Butler Pulse Ox Last 24 Hr 97.7 F-98.7 F 74-79 16-18 118-163/53-77 95-100 Exam: General: No Acute Distress HEENT: Jaundice Neck: Supple, No JVD Chest: Clear to auscultation B/L CV: S1 + S2 audible without murmur, gallop or rub Abd: soft, NT, Non-distended, BS + Ext: No edema Skin: No purpura, bruising or rash Rheumatologic: No Joint deformities Neurologic: Strength 5/5 all extremities, no gross sensory deficits Results - Labs CBC & BMP: 01/23/17 08:14 01/26/17 05:00 - Impressions Impressions (1) Obstructive jaundice Status: Acute Assessment and plan: Patient is status post ERCP with sphincterotomy and stent placement 01/23 with suspected cholangiocarcinoma. Oncology has been consulted. I discussed the plan of care with the daughter at bedside Current Visit: Yes (2) Abdominal pain Status: Acute Current Visit: Yes Duragesic patch added January 25 as she continues to have intermittent abdominal pain (3) Acute renal failure Status: Acute Current Visit: Yes Nephrology is following (4) Constipation Status: Acute Current Visit: Yes Continue Colace and Miralax (5) DM II (diabetes mellitus, type II), controlled Status: Acute Current Visit: No
[2017-01-27] MEDS: metroNIDAZOLE INJ 500 MG in PREMIX 1 EACH IV SCH ×4 (00:05→22:05)
[2017-01-27] MEDS: INSULIN LISPRO 100 UNIT/ML SUBCUT SCH ×4 (00:48→18:47)
[2017-01-27] MEDS: ONDANSETRON 4 MG/2 ML VIAL IV PRN (00:52)
[2017-01-27] MEDS: SODIUM ACETATE 100 MEQ in DEXTROSE 5% 1,000 ML IV SCH ×2 (04:16→06:23)
[2017-01-27] MEDS: PANTOPRAZOLE 40 MG VIAL IV SCH (08:34)
[2017-01-27] MEDS: DOCUSATE SODIUM 100 MG CAPSULE PO SCH ×2 (08:40→21:23)
[2017-01-27] MEDS: POLYETHYLENE GLYCOL POWDER 17 GM PACK PO SCH (08:40)
--- NOTE | 2017-01-27 09:01 | Oncology Consult Note ---
History of Present Illness Chief complaint: Painless jaundice History of present illness: Ms. Cooper is a 89 year old female Admitted to the hospital last week with painless jaundice. She is elderly and frail-appearing at this time. I spoke with her daughter from [place]. She immediately requested transfer to the [facility] for second opinion. She states that her mother has not had the type of attention and care that she thinks should have been given. I explained to her that my relationship with the patient was less than 10 minutes in duration and that from an oncology perspective there was not even a first opinion yet rendered. She has a presentation that is consistent with cholangiocarcinoma with dilated biliary ducts and mass-effect. Status post ERCP with stricture and successful stenting. Current bilirubin 11 . the patient's past medical history includes chronic kidney disease and diabetes. She had been living alone up until the time of admission. Imaging reviewed also includes abdominal ultrasound with no obvious pancreatic mass. A CT of the abdomen is preferred if the patient is to stay at this hospital. Of course this cannot be given with IV contrast. My physical examination was limited to the detection of bilateral scleral icterus. Patient was oriented to person place and situation and answered a few questions properly. Her abdomen was obese. From an oncology standpoint she is most appropriate for best supportive care only. Ideally I would like to have more detailed abdominal imaging and confirmatory pathology. Based on this morning's conversation I am very doubtful that her daughter would be accepting of this. I have involved case management to assist with inpatient transfer to [facility] as requested by the family. I have explained that this depends upon the cooperation of the accepting institution. Home Medications Medication Instructions Recorded Confirmed Type glipiZIDE [Glucotrol] 10 mg PO BID 01/01/15 01/22/17 History Esomeprazole Magnesium [Nexium] 40 mg PO DAILY 08/22/15 01/22/17 History Celecoxib [Celecoxib] 200 mg PO DAILY 01/22/17 01/22/17 History Cholecalciferol (Vitamin D3) 50,000 unit PO SA 01/22/17 01/22/17 History [Replesta] Cyclobenzaprine [Flexeril] 10 mg PO TID PRN 01/22/17 01/22/17 History Dexamethasone Tab [Decadron Tab] 4 mg PO DAILY 01/22/17 01/22/17 History Liraglutide [Victoza 2-Miguel] 1.2 mg SUBCUT QAM 01/22/17 01/22/17 History Losartan Potassium 50 mg PO DAILY 01/22/17 01/22/17 History Nitrofurantoin Monohyd/M-Cryst 100 mg PO QID 01/22/17 01/22/17 History [Nitrofurantoin [place]-Mcr 100 mg] Omeprazole [Prilosec] 20 mg PO DAILY 01/22/17 01/22/17 History Allergies Allergy/AdvReac Type Severity Reaction Status Date / Time Penicillins Allergy Mild HIVES Verified 01/22/17 08:04 Medical,Surgical,& Family Hx - Medical History Cardio: History of: Hypertension Neurology: History of: Peripheral Neuropathy No history of: Seizures HEENT: History of: Eye Problem (glasses), Dental Problems (full set) Endocrine: History of: Diabetes Mellitus (IDDM), Dyslipidemia Rheumatology: History of;: Gout (feet), Rheumatoid Arthritis Respiratory: History of: Respiratory Problems (sinus problems) Genitourinary: History of: Bladder Problem (incontience) Gastrointestinal: History of: GERD, Hemorrhoids Musculoskeletal: History of: Back/Neck Problems Other: History of: Anesthesia Reactions (nausea), Cancer (bladder cancer) - Surgical History Thoracic Surgeries: Patient denies;: Organ Transplant, Lobectomy HEENT Surgeries: Surgical HX of: Eye Surgery (bilateral cataract) Reproductive Surgeries: Surgical HX of;: Genitourinary Surgery (bladder cancer removed), Hysterectomy Orthopedic Surgeries: Surgical HX of;: Total Hip Replacement (left), Total Knee Replacement (right) - Family History Family History: Reports;: Family Cancer (son-brain tumor), Family Diabetes ( sister X2), Family Heart Disease - Social History Smoking Status: Never smoker Frequency of Alcohol Use: None Type of Drug Use: None Exam - Constitutional Vitals: Period Temp Pulse Resp BP Sys/Butler Pulse Ox Last 24 Hr 97.5 F-98.4 F 68-77 17-26 154-192/65-86 97-100 Results - Labs CBC & BMP: 01/23/17 08:14 01/26/17 05:00
--- NOTE | 2017-01-27 10:04 | Gastrointestinal Progress Note ---
<NuraGhazal Daniel - Last Filed: 01/27/17 10:02> Assessment and Plan (1) Abdominal pain Status: Acute Assessment and plan: 01/27-complaints of generalized abdominal pain with eating. Bilirubin at 11. Oncology has consulted. Social work has been consulted for possible [facility] transfer. Continue to monitor this time. Father plan an addendum to follow Dr. Bernal. 01/24-no complaints of abdominal pain. Tolerating diet. ERCP findings noted as below. Bilirubin remains elevated at 13 with minimal change in transaminases. CA-19-9 elevated. Further plan an addendum to followed by Dr. Bernal 01/22-2 week history of right upper quadrant abdominal pain radiating to back with associated nausea and vomiting. Reports of dark urine and itching as well 2 weeks. Findings noted on ultrasound as below. Also findings noted of elevated LFTs as below. Tumor markers pending at present time. Tentative ERCP tomorrow to further evaluate. Okay to start clear liquid diet. further plan an addendum to followed by Dr. Bernal. Current Visit: Yes Gastroenterology - PN: Subj Interval history: CC: Painless jaundice Patient is seen awake and alert with daughter at bedside. Patient has had no family available until this weekend. Patient is complaining of some abdominal pain every time she eats and just generally not feeling well. Last bilirubin on yesterday noted to be down slightly at 11.6 however transaminases still remain elevated. Abdomen is soft, mild tenderness to palpation. Dr. Rivera has consulted with patient and has recommended supportive care at this time however patient's daughter and after further discussion the patient wishes to pursue other options as far as treatment. They are requesting a transfer to [facility] for further evaluation. Dr. Rivera is already consulted case management to assist in exploring this option. ROS: Denies shortness of breath or chest pain Exam (Progress Note) - Constitutional Vitals: Period Temp Pulse Resp BP Sys/Butler Pulse Ox Last 24 Hr 97.5 F-98.4 F 68-77 17-26 154-192/65-86 97-100 General appearance: normal weight, no acute distress - Head Head exam: Present: normal inspection, normocephalic - Eye Eye exam: Present: scleral icterus, other (Lids and conjunctive are unremarkable ) - ENT ENT exam: Present: normal exam, normal oropharynx - Neck Neck exam: Present: normal inspection - Respiratory Respiratory exam: Present: clear to auscultation bilaterally. Absent: rales, rhonchi, wheezes - Cardiovascular Cardiovascular exam: Present: regular rate and rhythm. Absent: diastolic murmur , JVD, systolic murmur - GI/Abdominal GI/Abdominal exam: Present: normal bowel sounds, soft. Absent: ascites, distended, mass, organomegaly, tenderness - Extremities Exam Extremities exam: Present: normal inspection, full ROM - Back Exam Back exam: Present: normal inspection - Neurological Exam Neurological exam: Present: alert, oriented X3 - Psychiatric Psychiatric exam: Present: normal affect, normal mood - Skin Skin exam: Present: warm, dry, other (Jaundice) Results - Labs CBC & BMP: 01/23/17 08:14 01/26/17 05:00 Lab Results: I have reviewed the past 24 hour labs <Alexys Bernal - Last Filed: 01/27/17 21:23> Exam (Progress Note) - Constitutional Vitals: Period Temp Pulse Resp BP Sys/Butler Pulse Ox Last 24 Hr 97.5 F-98.2 F 57-73 12-26 127-192/54-86 97-100 Results - Labs CBC & BMP: 01/23/17 08:14 01/26/17 05:00
[2017-01-27] MEDS: LEVOFLOXACIN INJ 250 MG in PREMIX 1 EACH IV SCH (10:14)
--- NOTE | 2017-01-27 10:20 | Hospitalist Progress Note ---
Assessment and Plan (1) Abdominal pain Status: Acute Current Visit: Yes Qualifiers: Abdominal location: right upper quadrant Qualified Code(s): R10.11 - Right upper quadrant pain (2) Hyperbilirubinemia Status: Acute Assessment and plan: The patient's jaundice is due to obstruction of the common bile duct. Stent is now in place in the bile duct. Bilirubin is improving but still quite elevated. There is no evidence of biliary infection at this time. I am going to reduce dose of Flagyl to 500 mg twice daily Current Visit: Yes (3) CKD (chronic kidney disease) stage 3, GFR 30-59 ml/min Status: Acute Assessment and plan: The patient continues hydration for acute on chronic kidney disease stage III. Creatinine is improved to 3.1 today. Current Visit: Yes (4) UTI (urinary tract infection) Status: Acute Assessment and plan: The patient had pyuria at the time of admission. Cultures growing gram- negative organism. The last time that the patient had gram-negative rods they were E. coli multidrug resistant. The patient is allergic to penicillin. Most penicillin allergic patients can tolerate meropenem and I have ordered that. Because the patient's previous culture showed resistance to Levaquin I will discontinue the Levaquin. Current Visit: No Qualifiers: Urinary tract infection type: acute cystitis Hospitalist: Subjective Interval history: The patient complains of generalized abdominal discomfort. The patient's pain medications are effective but caused her to be drowsy. The patient's daughter is in the room and is concerned about her mother's abdominal discomfort and possible diagnosis of cancer. I had a 15 minute family conference concerning the patient's presentation, hospital course to date, results of ERCP, and possible future plans. The patient's daughter was insistent that she would like the patient transferred to [facility]. I called [facility] transfer line and coordinate care for 24 minutes with [facility]. I was able to speak with Dr. Maravilla, who was on-call for general medicine. We discussed the patient's hospital course to date and he recommended that we have imaging and for me to call him back after appropriate imaging to consider inpatient transfer. He was sounding unlikely to accept her transfer. Dr. Maravilla did not feel that [facility] had any special technology to offer the patient in this case. I discussed the patient's anatomy and test today with Dr. Nunn our radiologist. We discussed possibilities of MRI imaging and CT scan without contrast. He recommended that we try a noncontrast CT scan and make further plans based on that study. I order the appropriate study. Total coordination of care and family conference time together were 42 minutes. Exam - Constitutional Vitals: Period Temp Pulse Resp BP Sys/Btuler Pulse Ox Last 24 Hr 97.5 F-98.4 F 68-77 17-26 154-192/65-86 97-100 Exam: Constitutional System: Mild distress. No tremulousness. The patient is moderately sedated due to narcotic pain medicine Head: Normocephalic, atraumatic. Ears, Nose and Throat System: No evidence of Otitis or Mastoiditis. No epistaxis or discharge Eyes System: Pupils equal, round, and reactive. Extraocular muscles intact. Neck: Supple, without adenopathy, No jugular venous distention. No thyromegaly , neck mass, or prior surgery apparent. Respiratory System: Chest clear to auscultation. Cardiovascular System: Heart with regular rate and rhythm. No murmur. GI System: Abdomen soft, mild to moderate tenderness of right upper quadrant. Hypo-active bowel sounds present. Musculoskeletal System: limbs with no pedal edema. Full distal pulses. Neurological System: No discernable sensory deficit. No aphasia Psychiatric System: Conversation is rational Results - Labs CBC & BMP: 01/23/17 08:14 01/26/17 05:00 Lab Results: I have reviewed the past 24 hour labs Labs: Bilirubin has improved from 17 to 11
[2017-01-27] MEDS ORDERED: ZINC OXIDE 16% PASTE 57 GM TUBE TOP PRN (10:40)
--- NOTE | 2017-01-27 11:23 | CT Report ---
Referring physician: Kenton Coronado EXAM: CT abdomen without contrast DATE: 02/06/2017 COMPARISON: ERCP 01/27/2017, abdominal ultrasound 01/22/2017 REASON: Jaundice TECHNIQUE: Axial images of the abdomen were obtained without the use IV contrast. Sagittal and coronal reformatted images were acquired. Total DLP was 625.80 mGy*cm. FINDINGS: The heart is normal in size with coronary artery calcifications and calcification in the aortic and mitral valves. Small pleural effusions with relative elevation of the right hemidiaphragm. Atelectasis/infiltration in the lower lobes, especially the right. The liver is normal in size with pneumobilia in patient with CBD stent. Limited evaluation of the liver without contrast with ill-defined hypodensities around the stent with known dilated ducts. Filling defect in the contrast within the distended gallbladder in patient with ultrasound proven cholelithiasis. Persistent gallbladder wall thickening. Calcified granuloma in the nonenlarged spleen. Somewhat limited evaluation of the head of the pancreas without oral or IV contrast. No adrenal pathology is noted. Cortical scarring kidneys, especially the left with no renal calculi. Calcification in the wall of the nondilated abdominal aorta. The distal esophagus is minimally distended with fluid with small hiatal hernia. Air-fluid level in the stomach air-fluid levels in the stomach and distended small bowel. Limited evaluation of the bowel with the pelvis not scanned. The more distal small bowel is probably smaller in size with oral contrast in the right and transverse colon with diverticulosis. No free air. Degenerative changes are noted. Anasarca. IMPRESSION: Small pleural effusions with atelectasis/infiltration in the lower lobes and relative elevation of the right hemidiaphragm. Cholelithiasis with distended gallbladder and gallbladder wall thickening which can be seen with acute cholecystitis, etc. CBD stent with pneumobilia. Indeterminant hypodensity around the stent with malignant-appearing stricture noted on ERCP which is probably related to a neoplastic process since no CBD stones were identified on ERCP. Findings which can be associated with at least partial SBO or ileus with incomplete evaluation of these bowel. Diverticulosis of the colon. Cortical scarring in the kidneys. Diffuse arterial calcifications including coronary artery calcifications. Anasarca. The CT exam was performed using one or more of the following dose reduction techniques: Automated exposure control and adjustment of the mA and/or kV according to patient size. PROCEDURE INTERPRETED AT [facility] DEPARTMENT OF RADIOLOGY Final Report Signed by: Dr. Carline Naranjo
--- NOTE | 2017-01-27 12:13 | Nephrology Progress Note ---
Nephrology - PN: Subj Interval history: Pt still c/o right sided abd pain this am. Discussed CKD with family member at bedside. No renal labs this am. Family requesting "second opinion" at [facility]. Oncology note reviewed. CT reviewed. UTI with E.coli resistant to FQ, sensitive to carbapenems. Started on merem. Exam (PN)-Nephrology - Vital Signs Vital signs: Period Temp Pulse Resp BP Sys/Butler Pulse Ox Last 24 Hr 97.5 F-98.4 F 68-77 17-26 154-192/65-86 97-100 - General Appearance General appearance: well-developed, obese EENT: ATNC, PERRL, scleral icterus Neck: no JVD, no thyromegaly Respiratory: no kyphosis, clear Cardiology: no murmurs, no rub Gastrointestinal: normoactive bowel sounds, obese Integumentary: no rash, warm and dry Neurologic: no focal deficit, no asterixis, alert and oriented x3 Musculoskeletal: no deformities, no erythema Psychiatric: mood/affect appropriate, cooperative - Lab 01/23/17 08:14 01/26/17 05:00 Most recent lab results Calcium 8.1 MG/DL (8.5-10.1) L 01/26/17 05:00 Assessment and Plan (1) CKD (chronic kidney disease) stage 3, GFR 30-59 ml/min Status: Acute Current Visit: Yes (2) HUSSEIN (acute kidney injury) Problem details: Could be related to direct nephrotoxic effects of hyperbilirubinemia, but usually requires levels >20. No indication for renal replacement therapy. Status: Acute Assessment and plan: FeUrea 49% suggestive of intrinsic renal process. Current Visit: Yes (3) Hyperbilirubinemia Status: Acute Current Visit: Yes (4) DM II (diabetes mellitus, type II), controlled Status: Acute Current Visit: No (5) UTI (urinary tract infection) Status: Acute Current Visit: No Qualifiers: Urinary tract infection type: acute cystitis
[2017-01-27] MEDS: MEROPENEM 500 MG in SODIUM CHLORIDE 0.9% 100 ML IV SCH ×2 (13:58→23:12)
[2017-01-28] MEDS: SODIUM ACETATE 100 MEQ in DEXTROSE 5% 1,000 ML IV SCH ×2 (00:18→08:00)
[2017-01-28] MEDS: INSULIN LISPRO 100 UNIT/ML SUBCUT SCH ×3 (00:34→12:07)
[2017-01-28 07:23] LABS: Basophils % 0.1 % (0.0-0.8); Eosinophils # 0.1 10*3/uL (0.0-0.87); Eosinophils % 1.2 % (0.00-10.9); Hematocrit 27.6 VOL% (35.7-47.0); Hemoglobin 10.6 GM/DL (12.0-16.0); Immature Granulocytes % 2.1 %; Immature Granulocytes Absolute 0.16 #; Lymphocytes # 0.8 10*3/uL (1.4-4.0); Lymphocytes % 10.2 % (21.3-54.2); Mean Corpuscular HGB Conc 38.4 GM/DL (32-36); Mean Corpuscular Hemoglobin 30 PG (27-34); Mean Corpuscular Volume 78.4 FL (87-102); Mean Platelet Volume 11.8 FL (9.6-12.0); Monocytes # 0.7 10*3/uL (0.11-0.8); Monocytes % 8.6 % (1.7-12.7); Neutrophils # 5.8 10*3/uL (1.4-7.4); Neutrophils % 77.8 % (38.7-73.9); Platelet Count 180 T/CUMM (130-400); Red Blood Count 3.52 MC/CUMM (3.8-5.5); Red Cell Distribution Width 16.9 % (9.3-17.3); White Blood Count 7.5 T/CUMM (4-12)
[2017-01-28 07:32] LABS: INR 1.1; PT Patient Result 11.5 SECS
[2017-01-28 07:52] LABS: Albumin 1.6 G/DL (3.4-5.0); Calcium 8.3 MG/DL (8.5-10.1); Osmolality,Calculated 290.7 MOS/KG (273-304); Potassium 3.3 MMOL/L (3.5-5.1); Total Protein 4.5 G/DL (6.4-8.3)
[2017-01-28] MEDS: ONDANSETRON 4 MG/2 ML VIAL IV PRN (07:52)
[2017-01-28 07:53] LABS: Bilirubin,Total 12.4 MG/DL (0.2-1.0)
[2017-01-28 08:15] LABS: Band Neutrophils 6 % (0-10); Eosinophils 3 % (0-10); Lymphocytes 16 % (20-55); Nucleated Red Blood Cells 1 (0-5); Segmented Neutrophils 70 % (50-85); Total Cells Counted 100
[2017-01-28 08:16] LABS: Hypochromasia 1+; Microcytosis 1+
[2017-01-28 08:17] LABS: Target Cells Few
[2017-01-28] MEDS ORDERED: fentaNYL 25 MCG/HR PATCH TRANSDERM SCH (09:00)
[2017-01-28] MEDS: PANTOPRAZOLE 40 MG VIAL IV SCH (09:44)
[2017-01-28] MEDS: POLYETHYLENE GLYCOL POWDER 17 GM PACK PO SCH (09:44)
[2017-01-28] MEDS: DOCUSATE SODIUM 100 MG CAPSULE PO SCH (09:44)
--- NOTE | 2017-01-28 10:05 | Gastrointestinal Progress Note ---
<NuraGhazal Daniel - Last Filed: 01/28/17 10:03> Assessment and Plan (1) Abdominal pain Status: Acute Assessment and plan: 01/28-continued abdominal pain with nausea. LFTs noted as below. No recent update on possible [facility] transfer. Continue to monitor this time. Plan an addendum to follow Dr. Bernal. 01/27-complaints of generalized abdominal pain with eating. Bilirubin at 11. Oncology has consulted. Social work has been consulted for possible [facility] transfer. Continue to monitor this time. Father plan an addendum to follow Dr. Bernal. 01/24-no complaints of abdominal pain. Tolerating diet. ERCP findings noted as below. Bilirubin remains elevated at 13 with minimal change in transaminases. CA-19-9 elevated. Further plan an addendum to followed by Dr. Bernal 01/22-2 week history of right upper quadrant abdominal pain radiating to back with associated nausea and vomiting. Reports of dark urine and itching as well 2 weeks. Findings noted on ultrasound as below. Also findings noted of elevated LFTs as below. Tumor markers pending at present time. Tentative ERCP tomorrow to further evaluate. Okay to start clear liquid diet. further plan an addendum to followed by Dr. Bernal. Qualifiers: Abdominal location: right upper quadrant Qualified Code(s): R10.11 - Right upper quadrant pain Gastroenterology - PN: Subj Interval history: CC: Abdominal pain Patient is seen, awake and alert lying in bed with daughter at bedside. States that she had a difficult night with pain and nausea. Patient is having a difficult time getting her pain under control. She states the pain is constant , and is in her upper abdomen and radiates across. Denies any vomiting episodes. She is not currently eating or drinking very much at all due to the pain. Noted that Dr. Coronado is currently working with [facility] regarding possible transfer of care however no updates noted at this time on that. At this time, patient has an appointment scheduled to return for repeat ERCP in the next couple months to follow up on her stent. She is noted to have elevation in her bilirubin slightly today at 12.4 with an increase in her transaminases as well. Ammonia level was also checked noted to be at 36. ROS: No acute distress at present time. Exam (Progress Note) - Constitutional Vitals: Period Temp Pulse Resp BP Sys/Butler Pulse Ox Last 24 Hr 95.9 F-98.3 F 57-73 12-20 104-153/46-63 96-99 General appearance: normal weight, no acute distress - Head Head exam: Present: normal inspection, normocephalic - Eye Eye exam: Present: scleral icterus, other (Lids and conjunctive are unremarkable ) - ENT ENT exam: Present: normal exam, normal oropharynx - Neck Neck exam: Present: normal inspection - Respiratory Respiratory exam: Present: clear to auscultation bilaterally. Absent: rales, rhonchi, wheezes - Cardiovascular Cardiovascular exam: Present: regular rate and rhythm. Absent: diastolic murmur , JVD, systolic murmur - GI/Abdominal GI/Abdominal exam: Present: normal bowel sounds, soft. Absent: ascites, distended, mass, organomegaly, tenderness - Extremities Exam Extremities exam: Present: normal inspection, full ROM - Back Exam Back exam: Present: normal inspection - Neurological Exam Neurological exam: Present: alert, oriented X3 - Psychiatric Psychiatric exam: Present: normal affect, normal mood - Skin Skin exam: Present: normal color, warm, dry Results - Labs CBC & BMP: 01/28/17 07:06 01/28/17 07:06 Lab Results: I have reviewed the past 24 hour labs Specialty Discharge - Follow Up or Referrals Follow up with: Alexys Bernal MD [Physician] - (CALL NEEDED Replacing this stent in approximately 8-10 weeks and we have schedule for March 25 reevaluate her stent unless some other accommodation is made prior to that time at her visit to [facility].) Dago De Luna MD [Physician] - (CALL NEEDED) Dewey Serrano MD [Physician] - (CALL NEEDED) Xavier Rivera MD [Physician] - (CALL NEEDED) <Alexys Bernal - Last Filed: 01/28/17 22:03> Exam (Progress Note) - Constitutional Vitals: Period Temp Pulse Resp BP Sys/Butler Pulse Ox Last 24 Hr 95.9 F-98.3 F 68-73 16-20 104-164/46-75 97-98 Results - Labs CBC & BMP: 01/28/17 07:06 01/28/17 07:06
--- NOTE | 2017-01-28 10:19 | Nephrology Progress Note ---
Nephrology - PN: Subj Interval history: Pt less alert today. C/O continued abd pain. Attempted to educate family member at bedside again today regarding her liver issues. LAEs increased today as well as Bili. Creatinine improved to 2.5 from 3.1 for eGFR 22cc/min. Exam (PN)-Nephrology - Vital Signs Vital signs: Period Temp Pulse Resp BP Sys/Butler Pulse Ox Last 24 Hr 95.9 F-98.3 F 57-73 12-20 104-153/46-63 96-99 - General Appearance General appearance: well-developed, obese EENT: ATNC, PERRL Neck: no JVD, no thyromegaly Respiratory: no kyphosis, clear Cardiology: no murmurs, no rub Gastrointestinal: hypoactive bowel sounds, obese Integumentary: no rash, warm and dry Neurologic: no focal deficit, no asterixis Musculoskeletal: no deformities, no erythema Psychiatric: mood/affect appropriate, cooperative - Lab 01/28/17 07:06 01/28/17 07:06 Most recent lab results Calcium 8.3 MG/DL (8.5-10.1) L 01/28/17 07:06 Magnesium 2.0 MG/DL (1.8-2.4) 01/28/17 07:06 Assessment and Plan (1) CKD (chronic kidney disease) stage 3, GFR 30-59 ml/min Status: Acute Current Visit: Yes (2) HUSSEIN (acute kidney injury) Problem details: Improved. Could be related to direct nephrotoxic effects of hyperbilirubinemia, but usually requires levels >20. No indication for renal replacement therapy. Status: Acute Assessment and plan: FeUrea 49% suggestive of intrinsic renal process. Pt is not a good candidate for chronic hemodialysis due to poor predicted one year survival and comorbidities. Current Visit: Yes (3) Hyperbilirubinemia Status: Acute Current Visit: Yes (4) DM II (diabetes mellitus, type II), controlled Status: Acute Current Visit: No (5) UTI (urinary tract infection) Status: Acute Current Visit: No Qualifiers: Urinary tract infection type: acute cystitis
[2017-01-28] MEDS: metroNIDAZOLE INJ 500 MG in PREMIX 1 EACH IV SCH (11:13)
--- NOTE | 2017-01-28 12:18 | Discharge Summary ---
Hospital Course - Hospital Course Hospital Course: The patient was admitted to the hospital with abdominal pain and nausea with vomiting. The patient was found to have bilirubin of 13. The patient had GI consultation. Abdominal ultrasound revealed gallstones. ERCP was performed which revealed a proximal stricture. No stones were found in the common bile duct. A stent was placed through the stricture and bile began to drain. The patient's bilirubin began to improve by about one-point per day. CA-19-9 marker came back elevated 133. CT scan of abdomen revealed no tumor in the liver spleen or pancreas. The patient's creatinine had increased to 3 and we were unable to give the patient intravenous contrast for the CAT scan. I contacted Dr. Maravilla, who is the general medicine attending physician credit operations specialist through the transfer line at [facility]. We coordinated care concerning Mrs. Cooper and I relayed the family's request for inpatient transfer. Over several phone calls and further work on Dr. Hawkins's part, he was able to secure agreement with Dr. Brennan Soria for the [facility]. The patient is hemodynamically stable now and the patient's family requested I arrange her discharge. The patient's medications were reconciled at admission and again upon discharge. On the date of discharge coordination of care, examination of the patient, and preparation of prescriptions were required 64 minutes. - Time spent with patient Time with patient DS: Greater than 30 minutes Time spent discussing smoking cessation with patient: 3 to 10 minutes Diagnosis - Discharge Diagnosis (1) Abdominal pain Status: Acute (2) Hyperbilirubinemia Status: Acute (3) CKD (chronic kidney disease) stage 3, GFR 30-59 ml/min Status: Acute (4) UTI (urinary tract infection) Status: Acute Discharge Plan - Discharge Data Disposition: Disch To Home/Self Care Condition at Discharge: Guarded Discharge Diet: advance to your usual diet - Discharge Medications New fentaNYL 50 MCG/HR PATCH [Duragesic 50 Patch] 1 patch TRANSDERM Q3DAY #4 patch oxyCODONE IR [Roxicodone] 5 mg PO Q6H #30 tablet Continue Esomeprazole Magnesium [Nexium] 40 mg PO DAILY Dexamethasone Tab [Decadron Tab] 4 mg PO DAILY Discontinued glipiZIDE [Glucotrol] 10 mg PO BID Losartan Potassium 50 mg PO DAILY Liraglutide [Victoza 2-Miguel] 1.2 mg SUBCUT QAM Nitrofurantoin Monohyd/M-Cryst [Nitrofurantoin [place]-Mcr 100 mg] 100 mg PO QID Cyclobenzaprine [Flexeril] 10 mg PO TID PRN PRN Reason: MUSCLE SPASMS Cholecalciferol (Vitamin D3) [Replesta] 50,000 unit PO SA Celecoxib [Celecoxib] 200 mg PO DAILY Omeprazole [Prilosec] 20 mg PO DAILY - Follow Up or Referral - Forms/Instructions Exam - Constitutional Vitals: Period Temp Pulse Resp BP Sys/Butler Pulse Ox Last 24 Hr 95.9 F-98.3 F 57-73 16-20 104-164/46-75 96-99 - Respiratory Respiratory exam: Present: clear to auscultation bilaterally - Cardiovascular Cardiovascular exam: Present: regular rate and rhythm - GI/Abdominal GI/Abdominal exam: Present: hypoactive bowel sounds Discharge Results Procedures and tests throughout hospitalization: Pending Orders 01/22/17 08:19 Urinalysis Stat 03/25/17 12:43 FL fluoroscopy <1hr Routine Labs on day of discharge: Labs from last 24 hours 01/28/17 01/28/17 01/28/17 11:04 07:06 07:06 WBC RBC Hgb Hct MCV MCH MCHC RDW Plt Count MPV Neut % (Auto) Lymph % (Auto) [place] % (Auto) Eos % (Auto) Baso % (Auto) Neut # (Auto) Lymph # (Auto) [place] # (Auto) Eos # (Auto) Baso # (Auto) Total Counted Immature Gran % Nucleated RBC % Immature Gran # Segmented Neutrophils Band Neutrophils Lymphocytes Monocytes Eosinophils Nucleated RBCs Nucleated RBCs # Immature Plt Fraction Hypochromasia Microcytosis Target Cells Morphology Comment INR 1.1 PT Patient/Control Mix 11.5 Sodium 138 Potassium 3.3 L Chloride 104 Carbon Dioxide 24 Anion Gap 13.3 BUN 44 H Creatinine 2.50 H GFR Calculation 22 BUN/Creatinine Ratio 17.00 Glucose 184 H POC Glucose 134 H Calculated Osmolality 290.7 Calcium 8.3 L Magnesium 2.0 Total Bilirubin 12.40 H* AST 688 H ALT 227 H Alkaline Phosphatase 940 H Ammonia 36 H Total Protein 4.5 L Albumin 1.6 L Globulin 2.9 Albumin/Globulin Ratio 0.5 L 01/28/17 01/28/17 01/28/17 07:06 06:11 00:13 WBC 7.5 RBC 3.52 L Hgb 10.6 L Hct 27.6 L MCV 78.4 L MCH 30 MCHC 38.4 H RDW 16.9 Plt Count 180 MPV 11.8 Neut % (Auto) 77.8 H Lymph % (Auto) 10.2 L [place] % (Auto) 8.6 Eos % (Auto) 1.2 Baso % (Auto) 0.1 Neut # (Auto) 5.8 Lymph # (Auto) 0.8 L [place] # (Auto) 0.7 Eos # (Auto) 0.1 Baso # (Auto) 0.0 Total Counted 100 Immature Gran % 2.1 Nucleated RBC % 0.0 Immature Gran # 0.16 Segmented Neutrophils 70 Band Neutrophils 6 Lymphocytes 16 L Monocytes 5 Eosinophils 3 Nucleated RBCs 1 Nucleated RBCs # 0.00 Immature Plt Fraction 0.0 Hypochromasia 1+ Microcytosis 1+ Target Cells Few Morphology Comment INR PT Patient/Control Mix Sodium Potassium Chloride Carbon Dioxide Anion Gap BUN Creatinine GFR Calculation BUN/Creatinine Ratio Glucose POC Glucose 202 H 142 H Calculated Osmolality Calcium Magnesium Total Bilirubin AST ALT Alkaline Phosphatase Ammonia Total Protein Albumin Globulin Albumin/Globulin Ratio 01/27/17 01/27/17 18:30 14:03 WBC RBC Hgb Hct MCV MCH MCHC RDW Plt Count MPV Neut % (Auto) Lymph % (Auto) [place] % (Auto) Eos % (Auto) Baso % (Auto) Neut # (Auto) Lymph # (Auto) [place] # (Auto) Eos # (Auto) Baso # (Auto) Total Counted Immature Gran % Nucleated RBC % Immature Gran # Segmented Neutrophils Band Neutrophils Lymphocytes Monocytes Eosinophils Nucleated RBCs Nucleated RBCs # Immature Plt Fraction Hypochromasia Microcytosis Target Cells Morphology Comment INR PT Patient/Control Mix Sodium Potassium Chloride Carbon Dioxide Anion Gap BUN Creatinine GFR Calculation BUN/Creatinine Ratio Glucose POC Glucose 152 H 173 H Calculated Osmolality Calcium Magnesium Total Bilirubin AST ALT Alkaline Phosphatase Ammonia Total Protein Albumin Globulin Albumin/Globulin Ratio DS: Provider Date of admission: 01/22/17 12:46 Primary care physician: Bandar Hernandez Attending physician on admission: Jacinda Simon MD Consults: 01/22/17 12:36 Consult to Physician [CONS] Routine Comment: liver disorder Consulting Provider: Alexys Bernal Consulting Provider Notified: Yes When should Consulting Provider be notified: Now Person Notified: [email or web address] saw Date Notified: 01/22/17 01/22/17 14:17 Consult to Physician [CONS] Routine Comment: Consulting Provider: Dago De Luna Consulting Provider Notified: Yes When should Consulting Provider be notified: Now Person Notified: rafi Date Notified: 01/22/17 Time Notified: 14:21 01/25/17 11:53 Consult to Physician [CONS] Routine Comment: Please evaluate for worsening Renal Failure Consulting Provider: Dewey Serrano When should Consulting Provider be notified: Now When should Consulting Provider be notified: Now Person Notified: Dr. Serrano Date Notified: 01/26/17 Time Notified: 10:09 Consult Notification Comment: Called Dr. Serrano and he refused to take the consult. He stated that "patient was admitted to the hospital with chronic kidney disease and she will leave with chronic kidney disease and there is nothing he can do to fix it. He said she has cholangiocarcinoma and there is nothing he can do for her" 01/25/17 12:11 Consult to Physician [CONS] Routine Comment: Please evaluate for suspected Cholangiocarcinoma Consulting Provider: Xavier Rivera When should Consulting Provider be notified: Now When should Consulting Provider be notified: Now Date Notified: 01/26/17 Time Notified: 10:14 Consult Notification Comment: Left a voicemail for Dr. Maya to call [address] back for a new consult. Discharging clinician: Kenton Coronado MD
[2017-01-28] MEDS: MEROPENEM 500 MG in SODIUM CHLORIDE 0.9% 100 ML IV SCH (12:19)
[2017-01-28 16:32] VITALS: BP 162/74
== END 2017-01-28 17:40 | disposition home or self-care (01) | DRG 871 ==
LOC: N.ED 07:58 → SUATTDRO 12:46 → N.EDINP 12:46 → N.3E 14:04
PROVIDERS: ADMIT Internal Medicine; ATTEND Internal Medicine